=== PATIENT | female | born 1940 | race Caucasian/White ===

== ENCOUNTER → 2016-06-19 | Outpatient (CLI) | payer MEDICARE, BC ==
[~2016-06-19] MED LIST: AMBIEN 5MG TABLE5 MG PO; ATIVAN 0.50.5 MG/TAB PO; BUSPAR DIVIDOSE15 MG PO; BUSPAR5 MG PO; CALCIUM1 CAP PO; COLACE 100100 MG/CAP PO; ECHINACEA PO; ENSURE GLUCERN237 ML PO; FISH OIL SUPER1 SGL PO; K-DUR20 MEQ PO; LAMICTAL 25MG T25 MG PO; LEXAPRO20 MG PO; LUVOX 50MG50 MG/TAB PO; MIRTAZAPINE7.5 MG PO; NO HOME MEDICATIONS; RISPERDAL 0.5M0.5 MG PO; WELLBUTRIN SR100 M1 PO; [UNRECOGNIZED DRUG - OTHER] PO
== END ==
LOC: BHSO 13:39
DX: F41.1 Generalized anxiety disorder (principal)

== ENCOUNTER → 2016-08-04 | Outpatient (CLI) | payer MEDICARE, BC | LOC: BHSO 09:50 | DX: F41.1 Generalized anxiety disorder (principal) ==

== ENCOUNTER 2016-08-13 07:59 | Emergency (ER) | payer MEDICARE, BC ==
[~2016-08-13] VITALS: Ht 160 cm; Wt 56.8 kg
[~2016-08-13 07:59] MED LIST changes: -ATIVAN 0.50.5 MG/TAB PO; -BUSPAR DIVIDOSE15 MG PO; -BUSPAR5 MG PO; -COLACE 100100 MG/CAP PO; -ENSURE GLUCERN237 ML PO; -K-DUR20 MEQ PO; -LAMICTAL 25MG T25 MG PO; -LEXAPRO20 MG PO; -LUVOX 50MG50 MG/TAB PO; -MIRTAZAPINE7.5 MG PO; -RISPERDAL 0.5M0.5 MG PO; -WELLBUTRIN SR100 M1 PO
[2016-08-13 08:50] LABS: GRAN # 2.5 (1.4-6.5); GRAN % 62.1 % (42.2-75.2); HEMOGLOBIN 12.3 g/dl (12.5-16.0); LYMPH # 0.9 (1.2-3.4); LYMPH % 23.3 % (20.0-51.0); MEAN CELL VOLUME 91 fl (80.0-100.0); MEAN CORPUSCULAR HEMOGLOBIN 31 pg (27.0-31.0); MEAN CORPUSCULAR HGB CONC 34 g/dl (33.0-37.0); MEAN PLATELET VOLUME 9.8 fl (7.4-10.4); MONO # 0.5 (0.1-0.6); MONO % 12.4 % (1.7-9.3); PLATELET COUNT 228 K/mm3 (130-400); RED BLOOD COUNT 3.96 M/mm3 (4.10-5.30); REDCELL DISTRIBUTION WIDTH-CV 12.4 % (11.5-14.5)
[2016-08-13] MEDS ORDERED: LEXAPRO20 MG PO (08:51)
[2016-08-13] MEDS ORDERED: BUSPAR5 MG PO (08:51)
[2016-08-13] MEDS ORDERED: LAMICTAL 25MG T25 MG PO (08:52)
[2016-08-13] MEDS ORDERED: RISPERDAL 0.5M0.5 MG PO (08:52)
[2016-08-13] MEDS ORDERED: ENSURE GLUCERN237 ML PO (08:53)
[2016-08-13] MEDS ORDERED: ATIVAN 0.50.5 MG/TAB PO (08:53)
[2016-08-13 08:59] LABS: ADJUSTED CALCIUM 9.2 mg/dL (8.4-10.2); ALANINE AMINOTRANSFERASE 17 U/L (9-52); ALBUMIN 4.3 gm/dL (3.5-5.0); ALKALINE PHOSPHATASE 64 U/L (50-136); ANION GAP 11 mmol/L (7-16); BILIRUBIN,TOTAL 0.8 mg/dL (0.0-1.0); BLOOD UREA NITROGEN 8 mg/dL (7-17); CALCIUM 9.4 mg/dL (8.4-10.2); CARBON DIOXIDE 24 mmol/L (22-30); CHLORIDE 105 mmol/L (98-107); CREATININE, serum 0.71 mg/dL (0.52-1.25); GLUCOSE 90 mg/dL (74-106); POTASSIUM 3.5 mmol/L (3.4-5.0); SODIUM 139 mmol/L (137-145); TOTAL PROTEIN 7.1 gm/dL (6.4-8.2)
[2016-08-13 09:10] LABS: B-TYPE NATRIURETIC PEPTIDE 237 pg/mL (0-450); TROPONIN-I < 0.012 ng/mL (0.000-0.034)
[2016-08-13 09:28] LABS: PH 9 (5-8); SQUAMOUS EPITHELIAL None Seen /hpf; URINE APPEARANCE Clear; URINE BACTERIA Rare /hpf; URINE BILIRUBIN Negative (NEGATIVE); URINE BLOOD Negative (NEGATIVE); URINE COLOR Colorless; URINE GLUCOSE Negative (NEGATIVE); URINE KETONE Negative (NEGATIVE); URINE RBC 0-2 /hpf; URINE UROBILINOGEN Negative (NEGATIVE)
[2016-08-13 10:01] VITALS: BP 131/95; PULSE 70
== END 2016-08-13 10:04 | disposition home or self-care (01) ==
LOC: COL.ER 07:59
PROVIDERS: Emergency Medicine
DX: F41.9 Anxiety disorder, unspecified (principal); R53.1 Weakness
CPT/HCPCS: J7030

== ENCOUNTER 2017-01-11 07:37 | Emergency (ER) | payer MEDICARE, BC ==
[~2017-01-11] VITALS: Ht 160 cm; Wt 55.0 kg
[~2017-01-11 07:37] MED LIST changes: +ATIVAN 0.50.5 MG/TAB PO; +BUSPAR5 MG PO; +ENSURE GLUCERN237 ML PO; +LAMICTAL 25MG T25 MG PO; +LEXAPRO20 MG PO; +RISPERDAL 0.5M0.5 MG PO
[2017-01-11 07:46] VITALS: TEMP 97.5
[2017-01-11] MEDS ORDERED: COLACE 100100 MG/CAP PO (08:08)
[2017-01-11] MEDS ORDERED: K-DUR20 MEQ PO (08:11)
[2017-01-11] MEDS ORDERED: BUSPAR DIVIDOSE15 MG PO (08:12)
[2017-01-11] MEDS ORDERED: WELLBUTRIN SR100 M1 PO (08:13)
[2017-01-11] MEDS ORDERED: LUVOX 50MG50 MG/TAB PO (08:14)
[2017-01-11] MEDS ORDERED: MIRTAZAPINE7.5 MG PO (08:15)
[2017-01-11 08:46] LABS: BASO % 0.6 % (0.0-2.0); EOS # 0.1 (0.0-0.7); GRAN # 3.2 (1.4-6.5); HEMATOCRIT 37.4 % (37.0-47.0); HEMOGLOBIN 12.9 g/dl (12.5-16.0); LYMPH # 0.7 (1.2-3.4); LYMPH % 15.1 % (20.0-51.0); MEAN CELL VOLUME 91 fl (80.0-100.0); MEAN CORPUSCULAR HEMOGLOBIN 32 pg (27.0-31.0); MEAN CORPUSCULAR HGB CONC 35 g/dl (33.0-37.0); MEAN PLATELET VOLUME 9.3 fl (7.4-10.4); MONO # 0.6 (0.1-0.6); MONO % 11.9 % (1.7-9.3); PLATELET COUNT 207 K/mm3 (130-400); REDCELL DISTRIBUTION WIDTH-CV 12.2 % (11.5-14.5); WHITE BLOOD COUNT 4.7 K/mm3 (4.8-10.8)
[2017-01-11 08:56] LABS: PROTHROMBIN TIME 10.8 SECONDS (9.7-12.8)
[2017-01-11 08:59] LABS: PARTIAL THROMBOPLASTIN TIME 30.5 SECONDS (26.0-37.0)
[2017-01-11 09:14] LABS: ALANINE AMINOTRANSFERASE 35 U/L (9-52); ALBUMIN 4.5 gm/dL (3.5-5.0); ALKALINE PHOSPHATASE 74 U/L (50-136); ANION GAP 10 mmol/L (7-16); BILIRUBIN,TOTAL 0.8 mg/dL (0.0-1.0); BLOOD UREA NITROGEN 10 mg/dL (7-17); CALCIUM 9.4 mg/dL (8.4-10.2); CARBON DIOXIDE 24 mmol/L (22-30); CHLORIDE 97 mmol/L (98-107); CREATININE, serum 0.66 mg/dL (0.52-1.25); GLUCOSE 88 mg/dL (74-106); POTASSIUM 3.6 mmol/L (3.4-5.0); SODIUM 130 mmol/L (137-145); TOTAL PROTEIN 7.6 gm/dL (6.4-8.2)
[2017-01-11 09:18] LABS: C-REACTIVE PROTEIN < 0.5 mg/dL (0.0-0.9)
[2017-01-11 10:54] VITALS: BP 180/90; PULSE 75
== END 2017-01-11 10:55 | disposition home or self-care (01) ==
LOC: COL.ER 07:37
PROVIDERS: Emergency Medicine
DX: R21 Rash and other nonspecific skin eruption (principal); F41.9 Anxiety disorder, unspecified; Z98.818 Other dental procedure status

== ENCOUNTER 2017-12-26 09:24 | Emergency (ER) | payer MEDICARE, BC ==
[~2017-12-26] VITALS: Ht 160 cm; Wt 51.8 kg
[~2017-12-26 09:24] MED LIST changes: +BUSPAR DIVIDOSE15 MG PO; +COLACE 100100 MG/CAP PO; +K-DUR20 MEQ PO; +LUVOX 50MG50 MG/TAB PO; +MIRTAZAPINE7.5 MG PO; +WELLBUTRIN SR100 M1 PO
[2017-12-26 09:28] VITALS: TEMP 98.9
[2017-12-26] MEDS ORDERED: REMERON 15M15 MG/TA1 PO (09:42)
[2017-12-26 09:59] LABS: BASO % 0.6 % (0.0-2.0); EOS % 0.2 % (0-4.0); GRAN # 3.9 (1.4-6.5); HEMATOCRIT 35.6 % (37.0-47.0); HEMOGLOBIN 12.1 g/dl (12.5-16.0); LYMPH # 0.4 (1.2-3.4); MEAN CELL VOLUME 94 fl (80.0-100.0); MEAN CORPUSCULAR HEMOGLOBIN 32 pg (27.0-31.0); MEAN CORPUSCULAR HGB CONC 34 g/dl (33.0-37.0); MEAN PLATELET VOLUME 9.2 fl (7.4-10.4); MONO # 0.5 (0.1-0.6); PLATELET COUNT 219 K/mm3 (130-400); RED BLOOD COUNT 3.79 M/mm3 (4.10-5.30)
[2017-12-26 10:15] LABS: ALBUMIN 4.1 gm/dL (3.5-5.0); BILIRUBIN,TOTAL 0.4 mg/dL (0.0-1.0); C-REACTIVE PROTEIN 0.5 mg/dL (0.0-0.9); CREATININE, serum 0.63 mg/dL (0.52-1.25); MAGNESIUM 1.9 mg/dL (1.6-2.3); POTASSIUM 3.8 mmol/L (3.4-5.0)
[2017-12-26 11:20] LABS: COLLECTION METHOD CLEAN CATCH
[2017-12-26 11:40] LABS: PH 7 (5-8); SQUAMOUS EPITHELIAL 0-2 /hpf; URINE APPEARANCE Clear; URINE BACTERIA Rare /hpf; URINE BILIRUBIN Negative (NEGATIVE); URINE BLOOD Negative (NEGATIVE); URINE COLOR Yellow; URINE GLUCOSE Negative (NEGATIVE); URINE KETONE Negative (NEGATIVE); URINE LEUKOCYTE ESTERASE Trace (NEGATIVE); URINE NITRATE Negative (NEGATIVE); URINE PROTEIN(semi-quant) Negative (NEGATIVE); URINE UROBILINOGEN Negative (NEGATIVE)
[2017-12-26] MEDS ORDERED: CEFTIN500 MG PO (12:08)
[2017-12-26 12:21] VITALS: BP 164/80; PULSE 84
== END 2017-12-26 12:21 | disposition home or self-care (01) ==
LOC: COL.ER 09:24
PROVIDERS: Emergency Medicine
DX: R41.0 Disorientation, unspecified (principal); N39.0 Urinary tract infection, site not specified; I10 Essential (primary) hypertension; F41.9 Anxiety disorder, unspecified

== ENCOUNTER → 2018-01-04 | Outpatient (CLI) | payer MEDICARE, BC ==
[~2018-01-04] MED LIST changes: +CEFTIN500 MG PO; +REMERON 15M15 MG/TA1 PO
[2018-01-04 12:07] LABS: MAGNESIUM 1.9 mg/dL (1.6-2.3)
[2018-01-04 12:38] LABS: THYROID STIMULATING HORMONE 1.11 uIU/mL (0.465-4.680)
[2018-01-04 23:48] LABS: FOLATE (FOLIC ACID) 13.4 ng/mL (7.0-31.4)
== END ==
LOC: COL.RAD 10:47
PROVIDERS: Psychiatry & Neurology Neurology
DX: R41.3 Other amnesia (principal); G31.9 Degenerative disease of nervous system, unspecified; G62.9 Polyneuropathy, unspecified
CPT/HCPCS: Q9967

== ENCOUNTER → 2021-11-14 | Outpatient (CLI) | payer MEDICARE, BC ==
[2021-11-14 19:25] LABS: COLLECTION METHOD CLEAN CATCH
[2021-11-14 19:44] LABS: MUCOUS Present (NOT PRESENT); PH 8 (5-8); SQUAMOUS EPITHELIAL 0-2 /hpf (0-10); URINE APPEARANCE Clear (CLEAR/HAZY); URINE BACTERIA None Seen /hpf (NONE SEEN); URINE BILIRUBIN Negative (NEGATIVE); URINE BLOOD Negative (NEGATIVE); URINE COLOR Straw (YELLOW); URINE GLUCOSE Negative (NEGATIVE); URINE KETONE Negative (NEGATIVE); URINE LEUKOCYTE ESTERASE Negative (NEGATIVE); URINE NITRATE Negative (NEGATIVE); URINE PROTEIN(semi-quant) Negative (NEGATIVE); URINE RBC None Seen /hpf (0-2); URINE UROBILINOGEN Negative (NEGATIVE)
== END ==
LOC: ZLAB.STJ 16:00
PROVIDERS: Internal Medicine
DX: R35.0 Frequency of micturition (principal)

== ENCOUNTER → 2021-12-15 | Outpatient (CLI) | payer MEDICARE, BC ==
[2021-12-15 16:35] LABS: COLLECTION METHOD CLEAN CATCH
[2021-12-15 17:16] LABS: MUCOUS Present (NOT PRESENT); SQUAMOUS EPITHELIAL 0-2 /hpf (0-10); URINE APPEARANCE Clear (CLEAR/HAZY); URINE BACTERIA None Seen /hpf (NONE SEEN); URINE COLOR Yellow (YELLOW); URINE RBC 0-2 /hpf (0-2)
[2021-12-15 17:18] LABS: URINE GLUCOSE Negative (NEGATIVE); URINE KETONE Negative (NEGATIVE); URINE PROTEIN(semi-quant) Negative (NEGATIVE)
[2021-12-15 17:19] LABS: URINE BLOOD Negative (NEGATIVE); URINE NITRATE Negative (NEGATIVE); URINE UROBILINOGEN 0.2 E.U/dL (0.2-1.0)
== END ==
LOC: ZLAB.STJ 15:55
PROVIDERS: Family Medicine
DX: R30.0 Dysuria (principal)